=== PATIENT | male | born 1960 | race Hispanic/Latino ===

== ENCOUNTER 2017-11-23 14:00 | Inpatient (IN) | payer BC ==
--- NOTE | 2017-11-23 14:18 | ED PDOC ---
Arrival/HPI - General Chief Complaint: Weakness/Neurological Deficit Time Seen by Provider: 11/23/17 14:10 Historian: Patient, Other (medical records osh) - History of Present Illness Narrative History of Present Illness (Text): 56yoM, with hx of cad w stents, htn, hl, who had been sent for intermittent slurred speech, confusion, and left sided weakness for 3 days with also noted left side facial droop per . pt stated to outside facility he took his aspirin/plavix today. otherwise no n/v/duong/dizziness/sob/chest pain/abdomen pain/ numbness/tingling/pain w urination/drug use. 11/23/17 14:16 11/23/17 15:25 d/w Dr. Brownlee who stated no TPA, recommends admission, MRI/MRA of the head and neck. Time/Duration: Other (3 days) Symptom Onset: Gradual Symptom Course: Improving Quality: Other (no pain) Activities at Onset: Rest Context: Sitting Past Medical History - Provider Review Nursing Documentation Reviewed: Yes - Travel History Have you recently traveled outside [place] w/in the past 3 mons?: No - Infectious Disease Hx of Infectious Diseases: None - Cardiac Hx Cardiac Disorders: Yes Hx DC: Yes Hx Hypertension: Yes Hx Pacemaker: No Other/Comment: CATH- 4 STENTS - Pulmonary Hx Sleep Apnea: No - Neurological Hx Paralysis: No - Renal Hx Renal Disorder: No - Endocrine/Metabolic Hx Endocrine Disorders: No - Hematological/Oncological Hx Blood Transfusions: No Hx Blood Transfusion Reaction: No - Integumentary Hx Yan: No - Musculoskeletal/Rheumatological Hx Musculoskeletal Disorders: Yes (PINCHED NERVE NECK) Hx Back Pain: Yes - Gastrointestinal Hx Diverticulitis: No - Genitourinary/Gynecological Hx Genitourinary Disorders: No - Psychiatric Hx Psychophysiologic Disorder: No Hx Emotional Abuse: No Hx Physical Abuse: No Hx Substance Use: No - Surgical History Hx Arteriovenous Shunt: No Hx Cardiac Catheterization: Yes Hx Coronary Stent: Yes Hx Orthopedic Surgery: Yes - Anesthesia Hx Anesthesia: Yes Hx Anesthesia Reactions: No Hx Malignant Hyperthermia: No - Suicidal Assessment Feels Threatened In Home Enviroment: No Family/Social History - Physician Review Nursing Documentation Reviewed: Yes Family/Social History: No Known Family HX Smoking Status: Heavy Smoker > 10 Cigarettes Daily Hx Alcohol Use: No Hx Substance Use: No Hx Substance Use Treatment: No Allergies/Home Meds Allergies/Adverse Reactions: Allergies No Known Allergies Allergy (Verified 11/23/17 14:05) Home Medications: Home Meds Medication Instructions Recorded Confirmed Clopidogrel Hydrogen Sulfate 75 mg PO DAILY 08/29/12 01/21/16 [Plavix] Simvastatin 20 mg PO QPM 08/29/12 01/21/16 Aspirin [Aspir 81] 81 mg PO DAILY 10/12/13 01/21/16 Metoprolol Succinate [Toprol XL] 50 mg PO DAILY 10/12/13 01/21/16 Review of Systems - Review of Systems Constitutional: Normal Eyes: Normal ENT: Normal Respiratory: Normal Cardiovascular: Normal Gastrointestinal: Normal Genitourinary Male: Normal Musculoskeletal: Normal Skin: Normal Neurological: Focal Weakness, Speech Changes, Facial Droop Endocrine: Normal Hemo/Lymphatic: Normal Psychiatric: Normal Physical Exam Vital Signs Reviewed: Yes Vital Signs Temp Pulse Resp BP Pulse Ox 11/23/17 14:00 97.8 F 74 18 157/89 H 97 Temperature: Afebrile Blood Pressure: Hypertensive Pulse: Regular Respiratory Rate: Normal Appearance: Positive for: Well-Appearing, Non-Toxic, Comfortable Pain Distress: None Mental Status: Positive for: Alert and Oriented X 3 - Systems Exam Head: Present: Atraumatic, Normocephalic Pupils: Present: PERRL Extroacular Muscles: Present: EOMI Conjunctiva: Present: Normal Ears: Present: Normal Mouth: Present: Moist Mucous Membranes Pharnyx: Present: Normal Nose (External): Present: Atraumatic Nose (Internal): Present: Normal Inspection Neck: Present: Normal Range of Motion Respiratory/Chest: Present: Clear to Auscultation, Good Air Exchange Cardiovascular: Present: Regular Rate and Rhythm Abdomen: No: Tenderness, Distention, Normal Bowel Sounds, Peritoneal Signs, Rebound, Guarding, McBurney's Point Tender, Rovsing's Sign Present, Hernias, Feeding Tubes, Ostomy Tubes, Mass/Organomegaly, Scars, Other Upper Extremity: Present: Normal Inspection Lower Extremity: Present: Normal Inspection Neurological: Present: GCS=15, CN II-XII Intact, Motor Func Grossly Intact, Other (mild left facial droop) Skin: Present: Warm, Normal Color Psychiatric: Present: Alert, Oriented x 3, Normal Insight, Normal Concentration Medical Decision Making ED Course and Treatment: 56yoM, with hx of cad w stents, htn, hl, who had been sent for intermittent slurred speech, confusion, and left sided weakness for 3 days with also noted left side facial droop per . pt stated to outside facility he took his aspirin/plavix today. otherwise no n/v/duong/dizziness/sob/chest pain/abdomen pain/ numbness/tingling/pain w urination/drug use. ECG: SR CXR no active disease cT head chronic microvascular disease. small remote infarcts. no acute ICH or mass effect. 11/23/17 14:22 11/23/17 15:39 d 11/23/17 15:39 d/w Dr. Brownlee who stated no tpa, 3 days of symptoms. MRI/MRA head/neck. d/w Dr. Pacheco who accepted pt. stated agreed MRI/MRA head/neck. will admit to tele. Reassessment Condition: Re-examined, Unchanged - Lab Interpretations Lab Results: 11/23/17 14:40 11/23/17 14:40 Lab Results 11/23/17 14:40: Sodium 140, Potassium 4.2, Chloride 104, Carbon Dioxide 25, Anion Gap 15, BUN 18, Creatinine 1.0, Est GFR ( Amer) > 60, Est GFR (Non- Af Amer) > 60, Random Glucose 117 H, Calcium 9.5, Total Bilirubin 0.8, AST 25, ALT 33, Alkaline Phosphatase 77, Troponin I < 0.01, Total Protein 7.5, Albumin 4.4, Globulin 3.1, Albumin/Globulin Ratio 1.4, Triglycerides 120, Cholesterol 154, LDL Cholesterol Direct 104, HDL Cholesterol 35 11/23/17 14:40: PT 12.0, INR 1.05, APTT 30.4 11/23/17 14:40: WBC 7.3, RBC 4.93, Hgb 15.6, Hct 44.8, MCV 90.9, MCH 31.6, MCHC 34.8, RDW 13.2, Plt Count 184, MPV 9.4, Gran % 66.3, Lymph % (Auto) 26.5, [place] % (Auto) 5.5, Eos % (Auto) 1.2 L, Baso % (Auto) 0.5, Gran # 4.86, Lymph # (Auto ) 1.9, [place] # (Auto) 0.4, Eos # (Auto) 0.1, Baso # (Auto) 0.04 I have reviewed the lab results: Yes - RAD Interpretation Radiology Orders: 11/23/17 14:12 CHEST PORTABLE [RAD] Stat 11/23/17 15:34 BRAIN WITHOUT CONTRAST [MRI] Stat MRA HEAD WITH CONTRAST [MRI] Stat MRA HEAD WITHOUT CONTRAST [MRI] Stat MRA NECK W/WO CONTRAST [MRI] Stat Modeling Teacher: Radiologist (see mdm) - EKG Interpretation Interpreted by ED Physician: Yes (outside hospital ECG- SR, mild depressions, t wave inversions) Type: 12 lead EKG - Medication Orders Current Medication Orders: Sodium Chloride (Sodium Chloride 0.9%) 1,000 mls @ 100 mls/hr IV .Q10H PANFILO Last Admin: 11/23/17 14:56 Dose: 100 mls/hr eMAR Start Stop Document 11/23/17 14:56 [facility] (Rec: 11/23/17 14:56 [facility] [id number]) Intravenous Solution Start Date 11/23/17 Start Time 14:56 NIHSS Stroke Scale 3 - Date/Time Evaluation Performed Date Performed: 11/23/17 When Was NIHSS Performed: Baseline - How Severe is the Stroke Level of Consciousness: 0=Alert LOC to Questions: 0=Both comments correct LOC to commands: 0=Obeys both correctly Best Gaze: 0=Normal Visual: 0=No visual loss Facial: 1=Minor asymmetry Motor Arm - Left: 0=No drift Motor Arm - Right: 0=No drift Motor Leg - Left: 0=No drift Motor Leg - Right: 0=No drift Limb Ataxia: 0=Absent Sensory: 0=Normal Best Language: 0=No aphasia Dysarthia: 1=Mild to moderate slurring Extinction & Inattention (Neglect): 0=Normal, no object Score: 2 Disposition/Present on Arrival - Present on Arrival Any Indicators Present on Arrival: No History of DVT/PE: No History of Uncontrolled Diabetes: No Urinary Catheter: No History of Decub. Ulcer: No History Surgical Site Infection Following: None - Disposition Have Diagnosis and Disposition been Completed?: Yes Diagnosis: CVA (cerebral vascular accident) Disposition Time: 15:42 Patient Plan: Telemetry Condition: STABLE Forms: [employer] ([place])
[2017-11-23] MEDS: Sodium Chloride 0.9% 1,000 ML IV SCH (14:56)
[2017-11-23 15:04] LABS: BASO # 0.04 K/mm3 (0.0-2.0); BASO % 0.5 % (0.0-3.0); EOS # 0.1 (0.0-0.7); EOS % 1.2 % (1.5-5.0); GRAN # 4.86 (1.4-6.5); GRAN % 66.3 % (50.0-68.0); HEMOGLOBIN 15.6 g/dL (14.0-18.0); LYMPH # 1.9 (1.2-3.4); LYMPH % 26.5 % (22.0-35.0); MEAN CELL VOLUME 90.9 fl (80.0-105.0); MEAN CORPUSCULAR HEMOGLOBIN 31.6 pg (25.0-35.0); MEAN CORPUSCULAR HGB CONC 34.8 g/dl (31.0-37.0); MEAN PLATELET VOLUME 9.4 fl (7.0-11.0); MONO # 0.4 (0.1-0.6); MONO % 5.5 % (1.0-6.0); RBC 4.93 10^6/uL (3.5-6.1); RED CELL DISTRIBUTION WIDTH 13.2 % (11.5-14.5); WHITE BLOOD COUNT 7.3 10^3/ul (4.5-11.0)
--- NOTE | 2017-11-23 15:08 | RAD ---
HISTORY: Code Stroke COMPARISON: 11/23/2017 FINDINGS: LUNGS: No active pulmonary disease. PLEURA: No significant pleural effusion identified, no pneumothorax apparent. CARDIOVASCULAR: Normal. OSSEOUS STRUCTURES: No significant abnormalities. VISUALIZED UPPER ABDOMEN: Normal. OTHER FINDINGS: None. IMPRESSION: No active disease.
[2017-11-23 15:14] LABS: INR 1.05 (0.93-1.08); PARTIAL THROMBOPLASTIN TIME 30.4 Seconds (25.1-36.5)
[2017-11-23 15:15] LABS: ALB/GLOB RATIO 1.4 (1.1-1.8); ALBUMIN 4.4 g/dL (3.0-4.8); ALT/SGPT 33 U/L (7-56); AST/SGOT 25 U/L (17-59); BLOOD UREA NITROGEN 18 mg/dL (7-21); CALCIUM 9.5 mg/dL (8.4-10.5); GFR AFRICAN-AMERICAN > 60; GFR NON-AFRICAN AMERICAN > 60; HDL CHOLESTEROL 35 mg/dL (29-60)
[2017-11-23 15:25] LABS: LDL CHOLESTEROL 104 mg/dL (0-129)
[2017-11-23 15:29] LABS: TROPONIN I < 0.01 ng/mL
[2017-11-23 22:50] VITALS: BMI 33.4
--- NOTE | 2017-11-24 00:45 | CP.PCM.PN ---
Subjective - Date & Time of Evaluation Date of Evaluation: 11/24/17 Time of Evaluation: 00:44 - Subjective Subjective: S:Patient was seen at bedside. He is requesting nicotine patch. Has no other complaints now. Pertinent medical record was reviewed. O: VSS. Not in acute distress. LUNGS: Normal breathing pattern. A:Tobacco dependence. P:Nicotine patch as ordered. Objective - Vital Signs/Intake and Output Vital Signs (last 24 hours): Temp Pulse Resp BP Pulse Ox 97.7 F 83 20 146/93 H 94 L 11/24/17 00:01 11/24/17 00:01 11/24/17 00:01 11/24/17 00:01 11/24/17 00:01 - Medications Medications: Current Medications Sodium Chloride (Sodium Chloride 0.9%) 1,000 mls @ 100 mls/hr IV .Q10H PANFILO Last Admin: 11/23/17 14:56 Dose: 100 mls/hr Lorazepam (Ativan) 1 mg IVP Q6H PRN; Protocol PRN Reason: Anxiety Last Admin: 11/23/17 20:45 Dose: 1 mg - Labs Labs: PT 12.0 SECONDS (9.4-12.5) 11/23/17 14:40 INR 1.05 (0.93-1.08) 11/23/17 14:40 APTT 30.4 Seconds (25.1-36.5) 11/23/17 14:40
[2017-11-24] MEDS: Sodium Chloride 0.9% 1,000 ML IV SCH ×3 (05:00→19:53)
[2017-11-24 06:18] LABS: BASO # 0.02 K/mm3 (0.0-2.0); BASO % 0.3 % (0.0-3.0); EOS # 0.1 (0.0-0.7); EOS % 1.7 % (1.5-5.0); GRAN # 4.3 (1.4-6.5); GRAN % 61.9 % (50.0-68.0); HEMOGLOBIN 14.8 g/dL (14.0-18.0); LYMPH % 28.9 % (22.0-35.0); MEAN CELL VOLUME 90.8 fl (80.0-105.0); MEAN CORPUSCULAR HGB CONC 34.2 g/dl (31.0-37.0); MEAN PLATELET VOLUME 9.3 fl (7.0-11.0); MONO # 0.5 (0.1-0.6); MONO % 7.2 % (1.0-6.0); RBC 4.77 10^6/uL (3.5-6.1); RED CELL DISTRIBUTION WIDTH 13.2 % (11.5-14.5)
[2017-11-24 07:15] LABS: ALB/GLOB RATIO 1.4 (1.1-1.8); ALT/SGPT 28 U/L (7-56); AST/SGOT 31 U/L (17-59); BLOOD UREA NITROGEN 18 mg/dL (7-21); CALCIUM 9.3 mg/dL (8.4-10.5); GFR AFRICAN-AMERICAN > 60; GFR NON-AFRICAN AMERICAN > 60
--- NOTE | 2017-11-24 09:14 | MRI ---
PROCEDURE: MRI BRAIN WITHOUT CONTRAST HISTORY: 56yoM, facial droop/slurred speech COMPARISON: Noncontrast head CT from 11/23/2017 TECHNIQUE: Multiplanar, multisequence MR images of the brain were obtained without intravenous contrast enhancement. FINDINGS: HEMORRHAGE: None DWI: There is a small lacunar infarction in the posterior limb of the right internal capsule. . BRAIN PARENCHYMA: There are severe chronic microangiopathic changes. There is an old infarction in the left dumont radiata There is no mass, mass effect or abnormal extra-axial fluid collection. There is no territorial infarction. The midline sagittal structures are normal. VENTRICLES: There is mild age-related global parenchymal volume loss and proportionate enlargement of the ventricles and cortical sulci. There is a cavum septum pellucidum. CRANIUM: There is normal bone marrow signal pattern. ORBITS: Grossly unremarkable. PARANASAL SINUSES/MASTOIDS: There is a retention cyst/polyp in the right maxillary sinus and mild mucosal thickening in the left frontal sinus and ethmoid air cells. There are bilateral mastoid effusions. VASCULAR SYSTEM: There are normal signal voids in the larger intracranial arteries. OTHER FINDINGS: None. IMPRESSION: Small acute lacunar infarction in the posterior limb of the right internal capsule Severe chronic microangiopathic changes and mild age-related global parenchymal volume loss. A preliminary report was provided by [facility].
--- NOTE | 2017-11-24 09:19 | CP.PCM.CON ---
History of Present Illness - History of Present Illness History of Present Illness: Neurology Consult Note: 56M, with PMHx of epilepsy as a child, CAD w stents 2013, HTN and HLD presents to the ED with confusion, L sided weakness, slurred speech. Patient states that he wasn't "feeling right" starting 3 days ago than yesterday he started having L sided weakness, facial droop, and slurred speech and he came to the ED. Pt denies this ever occurring before. Today the patient states he still has L sided facial droop and slurred speech but denies any weakness of the extremities. He deneis any headache, dizziness, f/c, sob, cp, abd pain, n/v/d. PMH: epilepsy as a child, CAD w stents 2013, HTN and HLD PSH: appendectomy Med: refer to NOV ALL: shellfish FH: Brother with epilepsy, parents with heart dx Review of Systems - Review of Systems All systems: reviewed and no additional remarkable complaints except Past Patient History - Infectious Disease Hx of Infectious Diseases: None - Past Social History Smoking Status: Heavy Smoker > 10 Cigarettes Daily - CARDIAC Hx Cardiac Disorders: Yes Hx Hypercholesterolemia: Yes Hx Hypertension: Yes - PULMONARY Hx Respiratory Disorders: No - NEUROLOGICAL Hx Neurological Disorder: No Hx Seizures: Yes ("as a child") - HEENT Hx HEENT Problems: ([place]) - RENAL Hx Chronic Kidney Disease: No - ENDOCRINE/METABOLIC Hx Endocrine Disorders: No - HEMATOLOGICAL/ONCOLOGICAL Hx Blood Disorders: No - INTEGUMENTARY Hx Dermatological Problems: No - MUSCULOSKELETAL/RHEUMATOLOGICAL Hx Musculoskeletal Disorders: Yes Hx Back Pain: Yes Hx Falls: No Other/Comment: tendonitis, pinched nerve in neck - GASTROINTESTINAL Hx Gastrointestinal Disorders: No - GENITOURINARY/GYNECOLOGICAL Hx Genitourinary Disorders: No - PSYCHIATRIC Hx Psychophysiologic Disorder: No Hx Substance Use: No - SURGICAL HISTORY Hx Surgeries: Yes Hx Cardiac Catheterization: Yes Hx Coronary Stent: Yes Hx Orthopedic Surgery: Yes - ANESTHESIA Hx Anesthesia: Yes Hx Anesthesia Reactions: No Hx Malignant Hyperthermia: No Meds Allergies/Adverse Reactions: Allergies Allergy/AdvReac Type Severity Reaction Status Date / Time shellfish derived AdvReac NAUSEA Verified 11/23/17 20:10 - Medications Medications: Current Medications Sodium Chloride (Sodium Chloride 0.9%) 1,000 mls @ 100 mls/hr IV .Q10H PANFILO Last Admin: 11/24/17 05:00 Dose: 100 mls/hr Lorazepam (Ativan) 1 mg IVP Q6H PRN; Protocol PRN Reason: Anxiety Last Admin: 11/24/17 06:29 Dose: 1 mg Nicotine (Nicoderm Cq) 1 patch TD DAILY [facility] Pantoprazole Sodium (Protonix Inj) 40 mg IVP DAILY [facility] Physical Exam - Constitutional Appears: No Acute Distress - Head Exam Head Exam: ATRAUMATIC, NORMOCEPHALIC - Eye Exam Eye Exam: EOMI, PERRL Pupil Exam: NORMAL ACCOMODATION - ENT Exam ENT Exam: Mucous Membranes Moist - Respiratory Exam Respiratory Exam: Clear to Auscultation Bilateral. absent: Rales, Wheezes - Cardiovascular Exam Cardiovascular Exam: REGULAR RHYTHM, +S1, +S2 - GI/Abdominal Exam GI & Abdominal Exam: Normal Bowel Sounds, Soft. absent: Distended, Tenderness - Neurological Exam Neurological exam: Alert, Oriented x3 - Expanded Neurological Exam Expanded Patient oriented to: person, place, time Speech: Slurred Speech Cranial nerves: EOM's Intact: Normal, Tongue Deviation: Normal Cerebellar Function: Finger to Nose: Abnormal Left Neuro motor strength exam: Left Upper Extremity: 5, Right Upper Extremity: 5, Left Lower Extremity: 5, Right Lower Extremity: 5 - Psychiatric Exam Psychiatric exam: Normal Mood - Skin Skin Exam: Dry, Intact Results - Vital Signs Recent Vital Signs: Last Vital Signs Temp 97.8 F 11/24/17 05:58 Pulse 80 11/24/17 05:58 Resp 20 11/24/17 05:58 BP 135/85 11/24/17 05:58 Pulse Ox 95 11/24/17 05:58 - Labs Result Diagrams: 11/24/17 05:30 11/24/17 05:30 Labs: Laboratory Results - last 24 hr 11/23/17 11/23/17 11/24/17 17:44 21:43 05:30 WBC 7.0 RBC 4.77 Hgb 14.8 Hct 43.3 MCV 90.8 MCH 31.0 MCHC 34.2 RDW 13.2 Plt Count 171 MPV 9.3 Gran % 61.9 Lymph % (Auto) 28.9 [place] % (Auto) 7.2 H Eos % (Auto) 1.7 Baso % (Auto) 0.3 Gran # 4.30 Lymph # (Auto) 2.0 [place] # (Auto) 0.5 Eos # (Auto) 0.1 Baso # (Auto) 0.02 Sodium Potassium Chloride Carbon Dioxide Anion Gap BUN Creatinine Est GFR ( Amer) Est GFR (Non-Af Amer) POC Glucose (mg/dL) 75 86 Random Glucose Calcium Total Bilirubin AST ALT Alkaline Phosphatase Total Protein Albumin Globulin Albumin/Globulin Ratio 11/24/17 05:30 WBC RBC Hgb Hct MCV MCH MCHC RDW Plt Count MPV Gran % Lymph % (Auto) [place] % (Auto) Eos % (Auto) Baso % (Auto) Gran # Lymph # (Auto) Stone # (Auto) Eos # (Auto) Baso # (Auto) Sodium 141 Potassium 3.8 Chloride 106 Carbon Dioxide 25 Anion Gap 13 BUN 18 Creatinine 1.0 Est GFR ( Amer) > 60 Est GFR (Non-Af Amer) > 60 POC Glucose (mg/dL) Random Glucose 90 Calcium 9.3 Total Bilirubin 1.0 AST 31 ALT 28 Alkaline Phosphatase 75 Total Protein 6.8 Albumin 4.0 Globulin 2.8 Albumin/Globulin Ratio 1.4 Assessment & Plan - Assessment and Plan (Free Text) Assessment: 56M, with PMHx of epilepsy as a child, CAD w stents 2013, HTN and HLD presents to the ED with confusion, L sided weakness, slurred speech. Found to have small acute lacunar infarct in the post limb of R internal capsule. - Started Cilostazol (in addition to Asa ans plavix). I explained to the patient accompanied by and sister in detail the benefit (vasodilatory effect to prevent further strokes) and risk ( bleeding) of cilastazol. All questions answered. The patient along with family chose to start Cilostazol to dec chance or recurrent stroke. - MRI brain shows small acute lacunar infarct in the post limb of R internal capsule. - F/u MRA head - severe short segment stenosis in the L post [employer] - CTA of head and neck ordered to evaluate L [employer] stenosis - F/u echo with bubble study - F/u Carotid artery US - EEG ordered - Cont home asprin, plavix and lipitor - Maintain BP control with systolic BP <220/110 for permissive hypertension for 24-36 hours post stroke - PT and OT; Speech eval Case and plan was reviewed and discussed with Dr Brownlee
--- NOTE | 2017-11-24 09:26 | MRI ---
PROCEDURE: Magnetic Resonance Angiography Brain HISTORY: 56yoM, facial droop/slurred speech COMPARISON: None available. TECHNIQUE: 3D time of flight MR angiography of the intracranial arteries was performed. Rotating maximum intensity projection images were generated. FINDINGS: INTERNAL CAROTID ARTERIES: Normal flow related signal. The skull base, petrous, cavernous and supraclinoid segments are bilaterally widely patient. ANTERIOR CEREBRAL ARTERIES: Normal flow related signal. A1 and A2 segments are widely patent. Smaller distal branches unremarkable, as visualized. MIDDLE CEREBRAL ARTERIES: Normal flow related signal. M1 and M2 segments are widely patent. Perisylvian branches grossly symmetric. POSTERIOR CIRCULATION: Basilar Artery: Normal flow related signal. Distal Vertebral Arteries: Normal flow related signal. The left vertebral artery is hypoplastic, an anatomic variant. Posterior Cerebral Arteries: Normal flow related signal in the right posterior cerebral artery. There is severe short segment stenosis in the left proximal posterior cerebral artery. Posterior Inferior Cerebellar Arteries: Normal flow related signal. ANEURYSM/ VASCULAR MALFORMATIONS: None. OTHER FINDINGS: None. IMPRESSION: No evidence of occlusion or definite significant stenosis in the anterior circulation. Severe short segment stenosis in the left proximal posterior cerebral artery. Normal appearance of the right posterior cerebral, vertebral and basilar arteries. The left vertebral artery is
--- NOTE | 2017-11-24 09:40 | HP ---
HISTORY OF PRESENT ILLNESS: The patient is a 56 year old man with a past medical history of CAD s/p PCI with stent placement, hyperlipidemia and an extensive smoking history who presented to [facility] ED for evaluation of a 3 day history of dysarthria, left facial droop and gait unsteadiness. The patient was reportedly in his usual state of health until approximately 3 days ago when the symptoms began. He initially attributed them to a sinus infection as he reported numbness and tingling to his left maxilla. Over the course of the following 72 hours he developed rather significant dysarthria and upon the insistence of his , he presented to the [facility] ED in [place]. The patient underwent a CT of the head which reportedly demonstrated a subacute infarct and he was advised that he would require a full neurologic workup. He had then requested to be transferred to [facility] for further evaluation. Upon arrival to the ED he was noted to be afebrile and hemodynamically stable. Given the duration of his symptoms he was not a candidate for tPA. The on-call neurologist (Dr. Brownlee) made recommendations for admission and MRA of the brain. He was subsequently admitted to the telemetry talley for continued neurological workup. PAST MEDICAL HISTORY: As per HPI, also COPD. PAST SURGICAL HISTORY: As per HPI, also spinal surgery and inguinal hernia repair. ALLERGIES: NKDA. MEDICATIONS: Lipitor 20 mg p.o. daily, Aspirin 81 mg p.o. daily, Plavix 75 mg p.o. daily and Toprol XL 50 mg p.o. daily. FAMILY HISTORY: Noncontributory. SOCIAL HISTORY: The patient reports an active 40 pack year smoking history and social alcohol use. He denies illicit drug abuse. REVIEW OF SYSTEMS: A 14-point review of systems is negative except as per HPI. PHYSICAL EXAMINATION VITAL SIGNS: Temperature 97.8, pulse 80, blood pressure 135/85, respiratory rate 20, and oxygen saturations 95% on room air. GENERAL: No apparent distress. HEENT: PERRL. EOMI. No scleral icterus. No conjunctival pallor. Left-sided facial droop is noted. NECK: Supple with full range of motion. LUNGS: Distant breath sounds with faint wheeze. CARDIOVASCULAR: Regular rate and rhythm. Normal S1 and S2. ABDOMEN: Normoactive bowel sounds. Soft, nontender, and nondistended. EXTREMITIES: No edema. NEUROLOGIC: Awake, alert and oriented x3. Decreased sensation and motor function to left aspect of face with left facial droop noted. Motor is 5/5 on the right, 4+/5 on the left. LABORATORY DATA: CBC reviewed and unremarkable. CMP reviewed and unremarkable. Cholesterol 154 , triglycerides 120, LDL 104, HDL 35. IMAGING STUDIES: 1. Chest x-ray demonstrated no active disease. 2. MRI of the brain is pending. 3. MRA of the head and neck is pending. ASSESSMENT: The patient is a 56 year old man with a past medical history of CAD s/p PCI with stent placement, hyperlipidemia and COPD who presented for evaluation of a 3 day history of dysarthria and left-sided facial droop and was noted on outpatient imaging an acute vs subacute infarct and who was admitted to the telemetry talley for management of cerebrovascular accident. PLAN: 1. CVA. Given the chronicity of the symptoms, the patient is not a candidate for tPA. Evaluation by Dr. Brownlee is pending. The patient underwent an MRI and MRA of the brain which is pending. Continue with frequent neuro checks. Speech and swallow evaluation is pending and the patient will remain n.p.o., pending their evaluation. PT/OT evaluation is pending. 2. CAD s/p PCI with stent placement. The patient is on Aspirin 81 mg p.o. daily, Plavix 75 mg p.o. daily, Lipitor 20 mg p.o. daily, and Toprol XL 50 mg p.o. daily at home. However he remains n.p.o., pending speech and swallow evaluation. 3. Hyperlipidemia. As above, we will hold statin pending speech and swallow evaluation. 4. COPD. Continue supplemental oxygen and bronchodilators as needed. 5. Tobacco dependence. Continue nicotine 21 mg transdermal patch. 6. Anxiety. Continue Ativan 1 mg IV q. 6 hours as needed. 7. Prophylaxis. We will start Protonix 40 mg IV daily for GI prophylaxis and Venodyne for DVT prophylaxis. CODE STATUS: Full code. Piter Ordonez MD [facility] # [id number] GARRICK
--- NOTE | 2017-11-24 11:05 | CARD ---
APPROVED REPORT EKG Measurement Heart [id number] <Conclusion> Normal sinus rhythm Possible Left atrial enlargement Left ventricular hypertrophy with repolarization abnormality
[2017-11-24 12:40] LABS: FOLATE 12.9 ng/mL
[2017-11-24] MEDS: Metoprolol Succinate 50 mg XL Tab PO SCH (13:35)
--- NOTE | 2017-11-24 17:19 | CARD ---
APPROVED REPORT EXAM: Two-dimensional and M-mode echocardiogram with Doppler and color Doppler. INDICATION CVA/TIA BUBBLE STUDY TO R/O PFO 2D DIMENSIONS Left Atrium (2D)5.1 (1.6-4.0cm)IVSd1.1 (0.7-1.1cm) LVDd5.4 (3.9-5.9cm)PWd1.3 (0.7-1.1cm) LVDs4.5 (2.5-4.0cm)FS (%) 17.3 % LVEF (%)35.8 (>50%) M-Mode DIMENSIONS Aortic Root2.90 (2.2-3.7cm)Aortic Cusp Exc.1.30 (1.5-2.0cm) Aortic Valve AoV Peak Xumzwuxr847.0cm/sAoV VTI39.4cmAO Peak GR.13mmHg LVOT Peak Umtxtuys59.7cm/sLVOT VTI18.30cmAO Mean GR.8mmHg Mitral Valve MV E Kvbgkynp84.4cm/sMV A Agvawpnw81.6cm/sE/A ratio0.7 TDI Lateral E' Peak V4.68cm/sMedial E' Peak V5.36cm/sE/Lateral E'14.0 E/Medial E'12.2 Pulmonary Valve PV Peak Vuohengf91.6cm/sPV Peak Grad.3mmHg Tricuspid Valve TR Peak Ibrsreef106ru/sRAP [id number] Peak Gr.9mmHg [id number] LEFT VENTRICLE The left ventricle is normal size. There is mild concentric left ventricular hypertrophy. The systolic function is moderately impaired.EF=-35 -40% There is global hypokinesis of the left ventricle. Transmitral Doppler flow pattern is Grade III-reversible restrictive diastolic dysfunction. No left ventricle thrombus noted on this study. There is no ventricular septal defect visualized. There is no left ventricular aneurysm. There is no mass noted in the left ventricle. RIGHT VENTRICLE The right ventricle is normal size. There is normal right ventricular wall thickness. The right ventricular systolic function is normal. ATRIA The left atrium is mildly dilated. The right atrium size is normal. The interatrial septum is intact with no evidence for an atrial septal defect. AORTIC VALVE The aortic valve is thickened but opens well. The aortic valve is bicuspid. The aortic valve is moderately sclerotic. No aortic regurgitation is present. Possibly Mild As Vs aotic sclerosis. There is no aortic valvular vegetation. MITRAL VALVE The mitral valve is thickened but opens well. Mitral regurgitation is trace. There is no mitral valve stenosis. There is no evidence of mitral valve prolapse. TRICUSPID VALVE The tricuspid valve leaflets are thickened , but open well. There is trace tricuspid regurgitation.RVSP-19 mmof hg. There is no tricuspid valve stenosis. There is no tricuspid valve prolapse or vegetation. PULMONIC VALVE The pulmonary valve is normal in structure. There is no pulmonic valvular regurgitation. There is no pulmonic valvular stenosis. GREAT VESSELS The aortic root is normal in size. The ascending aorta is normal in size. The pulmonary artery is normal. The IVC is normal in size and collapses >50% with inspiration. PERICARDIAL EFFUSION There is no pleural effusion. There is no pericardial effusion. <Conclusion> The left ventricle is normal size. There is mild concentric left ventricular hypertrophy. The systolic function is moderately impaired.EF=-35 -40% There is global hypokinesis of the left ventricle. The aortic valve is thickened but opens well. The aortic valve is bicuspid. Possibly Mild As Vs aotic sclerosis. Mitral regurgitation is trace. There is trace tricuspid regurgitation.RVSP-19 mmof hg No Vegetation or thrombus noted.
[2017-11-24] MEDS: Cilostazol 100 mg Tab UD PO SCH (17:51)
--- NOTE | 2017-11-24 19:21 | US ---
PROCEDURE: Bilateral carotid artery duplex ultrasound HISTORY: Carotid stenosis lacunar infarct PHYSICIAN(S): Peter Haq MD. TECHNIQUE: Duplex sonography and color-flow Doppler were used to evaluate the carotid bifurcations and limited segments of the vertebral arteries bilaterally. FINDINGS: There is mild smooth heterogeneous plaque noted at the carotid bifurcations bilaterally. The peak systolic velocity in the proximal right internal carotid artery is 74 cm/sec. This corresponds to a 20 to 39% proximal right ICA stenosis. Normal systolic velocities are noted in the proximal right external carotid artery. There is antegrade flow in the dominant right vertebral artery. The peak systolic velocity in the proximal left internal carotid artery is 60 cm/sec. This corresponds to a 20 to 39% proximal left ICA stenosis. Normal systolic velocities are noted in the proximal left external carotid artery. There is blunted antegrade flow in the left vertebral artery. IMPRESSION: 1. Bilateral 20-39% proximal ICA stenoses. 2. Antegrade flow in the dominant right vertebral artery. Blunted flow in the small left vertebral artery
[2017-11-24] MEDS ORDERED: Magnesium Hydroxide Susp 30 ml UD PO ONE (19:44)
--- NOTE | 2017-11-24 21:56 | CT ---
EXAM: CT Angiography Head With Intravenous Contrast CLINICAL HISTORY: The patient age is 56 years old and is male; Signs and symptoms; Other: L posterior mechanic insulator stenosis Facility exam id and description: [facility] head neck bundle TECHNIQUE: Axial computed tomographic angiography images of the head with intravenous contrast using CT angiography protocol. All CT scans at this facility use one or more dose reduction techniques, viz.: automated exposure control; ma/kV adjustment per patient size (including targeted exams where dose is matched to indication; i.e. head); or iterative reconstruction technique. MIP reconstructed images were created and reviewed. Coronal and sagittal reformatted images were created and reviewed. CONTRAST: 139 mL of OMNI 350 administered intravenously. COMPARISON: CT Head WO 2017-11-23 12:06 FINDINGS: Right internal carotid artery: No acute findings. Intracranial segment is patent with no significant stenosis. No aneurysm. Right anterior cerebral artery: No occlusion or significant stenosis. No aneurysm. Right middle cerebral artery: No occlusion or significant stenosis. No aneurysm. Right posterior cerebral artery: No occlusion or significant stenosis. No aneurysm. Right vertebral artery: A dominant right vertebral artery is identified. There is a diffuse decrease in caliber of the left vertebral artery, without occlusion. Left internal carotid artery: No acute findings. Intracranial segment is patent with no significant stenosis. No aneurysm. Left anterior cerebral artery: No occlusion or significant stenosis. No aneurysm. Left middle cerebral artery: No occlusion or significant stenosis. No aneurysm. Left posterior cerebral artery: There is mild stenosis of the left posterior cerebral artery. No aneurysm. Left vertebral artery: See above. Basilar artery: No significant stenosis. No occlusion. No aneurysm. Sinuses: Mucous retention cysts or polyps are minimal mucosal thickening is identified within the maxillary sinuses, right side greater than left. There is opacification of a left anterior ethmoid air cell, with mucosal thickening of the left frontal sinus. IMPRESSION: 1. A dominant right vertebral artery is identified. There is a diffuse decrease in caliber of the left vertebral artery, without occlusion. 2. There is mild stenosis of the left posterior cerebral artery. 3. Paranasal sinus disease is noted above. EXAM: CT Angiography Neck With Intravenous Contrast EXAM DATE/TIME: 11/24/2017 1:22 PM CLINICAL HISTORY: The patient age is 56 years old and is male; Signs and symptoms; Other: L posterior mechanic insulator stenosis Facility exam id and description: [facility] head neck bundle TECHNIQUE: Axial computed tomographic angiography images of the neck with intravenous contrast using CT angiography protocol. All CT scans at this facility use one or more dose reduction techniques, viz.: automated exposure control; ma/kV adjustment per patient size (including targeted exams where dose is matched to indication; i.e. head); or iterative reconstruction technique. MIP reconstructed images were created and reviewed. Coronal and sagittal reformatted images were created and reviewed. CONTRAST: 139 mL of OMNI 350 administered intravenously. COMPARISON: CT Head WO 2017-11-23 12:06 FINDINGS: Limitations: Venous enhancement limits evaluation of the right subclavian artery. VASCULATURE: Right common carotid artery: No significant stenosis. No dissection or occlusion. Right internal carotid artery: There is minimal atherosclerosis of the proximal right internal carotid artery, without hemodynamically significant stenosis or occlusion. Right external carotid artery: No occlusion. Right vertebral artery: A dominant right vertebral artery is identified, without significant stenosis or occlusion. Left common carotid artery: No significant stenosis. No dissection or occlusion. Left internal carotid artery: Atherosclerosis and mural thrombus are visualized within the proximal left internal carotid artery, with approximately 40% stenosis. Left external carotid artery: No occlusion. Left vertebral artery: The left vertebral artery is diffusely small in caliber, without obstruction. The left vertebral artery originates from the aortic arch, which is a developmental variation. Other vasculature: There is borderline aneurysmal dilatation of the ascending aorta measuring 3.8 cm in diameter. NECK: Bones/joints: Spondylosis is visualized at multiple cervical levels. There is straightening of the lordotic curvature of the cervical spine. Soft tissues: No mass. Lung apices: Mild patchy groundglass density is identified within the lungs. CAROTID STENOSIS REFERENCE USING NASCET CRITERIA: % ICA stenosis = (1 - narrowest ICA diameter/diameter of distal cervical ICA) x 100. Mild - <50% stenosis. Moderate - 50-69% stenosis. Severe - 70-94% stenosis. Near occlusion - 95-99% stenosis. Occluded - 100% stenosis. IMPRESSION: 1. A dominant right vertebral artery is identified. The left vertebral artery is diffusely small in caliber, without obstruction. The left vertebral artery originates from the aortic arch, which is a developmental variation. 2. Atherosclerosis and mural thrombus are visualized within the proximal left internal carotid artery, with approximately 40% stenosis. 3. There is borderline aneurysmal dilatation of the ascending aorta measuring 3.8 cm in diameter. 4. Additional CT findings described above.
[2017-11-25] MEDS: Sodium Chloride 0.9% 1,000 ML IV SCH ×2 (05:17→17:56)
[2017-11-25] MEDS: Pantoprazole 40 mg Susp UD PO SCH (05:18)
[2017-11-25 07:32] LABS: BASO # 0.03 K/mm3 (0.0-2.0); BASO % 0.4 % (0.0-3.0); EOS # 0.1 (0.0-0.7); EOS % 1.8 % (1.5-5.0); GRAN # 4.12 (1.4-6.5); GRAN % 60.5 % (50.0-68.0); HEMOGLOBIN 13.7 g/dL (14.0-18.0); LYMPH # 2.1 (1.2-3.4); MEAN CELL VOLUME 90.2 fl (80.0-105.0); MEAN CORPUSCULAR HEMOGLOBIN 30.6 pg (25.0-35.0); MEAN PLATELET VOLUME 9.6 fl (7.0-11.0); MONO # 0.4 (0.1-0.6); MONO % 6.3 % (1.0-6.0); RBC 4.47 10^6/uL (3.5-6.1); WHITE BLOOD COUNT 6.8 10^3/ul (4.5-11.0)
[2017-11-25 07:43] LABS: ALB/GLOB RATIO 1.4 (1.1-1.8); ALBUMIN 3.6 g/dL (3.0-4.8); ALT/SGPT 32 U/L (7-56); AST/SGOT 19 U/L (17-59); BLOOD UREA NITROGEN 13 mg/dL (7-21); CALCIUM 8.5 mg/dL (8.4-10.5); GFR AFRICAN-AMERICAN > 60; GFR NON-AFRICAN AMERICAN > 60
[2017-11-25] MEDS: Metoprolol Succinate 50 mg XL Tab PO SCH (11:09)
[2017-11-25] MEDS: Cilostazol 100 mg Tab UD PO SCH ×2 (11:10→17:55)
--- NOTE | 2017-11-25 12:08 | CP.PCM.PN ---
Subjective - Date & Time of Evaluation Date of Evaluation: 11/25/17 Time of Evaluation: 12:01 - Subjective Subjective: Mr. Garces was seen and examined at the bedside.He is alert, oriented with left facial droop.He has mild dysarthria.He denies any headache,dizziness, lightheadedness, nausea, vomiting. He is able to follow simple commands. His left side is weaker than the right.CTA of the head and neck showed adominant right vertebral artery. The left vertebral artery is diffusely small in caliber without obstruction. The left vertebral originates from the arch which ia developmental variation. Atherosclerosis and mural thrombosis are visualized within the proximal left ICA with approximately 40% stenosis. There is a borderline aneurymmal dilation of the ascending aorta measuring 3.8 cm in diameter. Patient is on telesitter for patient safety. Objective - Vital Signs/Intake and Output Vital Signs (last 24 hours): Temp Pulse Resp BP Pulse Ox 97.7 F 84 18 137/74 97 11/25/17 11:44 11/25/17 11:44 11/25/17 11:44 11/25/17 11:09 11/25/17 06:00 Intake and Output: 11/25/17 11/25/17 06:59 18:59 Intake Total 1860 Output Total 1600 Balance 260 - Medications Medications: Current Medications Aspirin (Aspirin Chewable) 81 mg PO DAILY [facility] Last Admin: 11/25/17 11:10 Dose: 81 mg Atorvastatin Calcium (Lipitor) 40 mg PO DIN [facility] Last Admin: 11/24/17 17:52 Dose: 40 mg Cilostazol (Pletal) 100 mg PO BID [facility] Last Admin: 11/25/17 11:10 Dose: 100 mg Clopidogrel Bisulfate (Plavix) 75 mg PO DAILY [facility] Last Admin: 11/24/17 13:35 Dose: 75 mg Sodium Chloride (Sodium Chloride 0.9%) 1,000 mls @ 100 mls/hr IV .Q10H [facility] Last Admin: 11/25/17 05:17 Dose: 100 mls/hr Lorazepam (Ativan) 1 mg IVP Q6H PRN; Protocol PRN Reason: Anxiety Last Admin: 11/25/17 01:02 Dose: 1 mg Metoprolol Succinate (Toprol Xl) 50 mg PO DAILY [facility] Last Admin: 11/25/17 11:09 Dose: 50 mg Nicotine (Nicoderm Cq) 1 patch TD DAILY [facility] Last Admin: 11/25/17 11:11 Dose: 1 patch Pantoprazole Sodium (Protonix Susp) 40 mg PO 0600 [facility] Last Admin: 11/25/17 05:18 Dose: 40 mg - Labs Labs: 11/25/17 06:00 11/25/17 06:00 PT 12.0 SECONDS (9.4-12.5) 11/23/17 14:40 INR 1.05 (0.93-1.08) 11/23/17 14:40 APTT 30.4 Seconds (25.1-36.5) 11/23/17 14:40 - Constitutional Appears: No Acute Distress - Head Exam Head Exam: NORMAL INSPECTION - Neurological Exam Neurological Exam: Alert, Awake Neuro motor strength exam: Left Upper Extremity: 4, Right Upper Extremity: 5, Left Lower Extremity: 4, Right Lower Extremity: 5 Additional comments: He isalert, followscommands with dysarthria.Sensation remains intact. Assessment and Plan (1) CVA (cerebral vascular accident) Assessment & Plan: Case discussed with Dr. Brownlee, continue allcurrent medical.physical, occupational, and speech therapies. Recommend maintaining BP control with systolic BP <220/110 for permissive hypertension for 24-36 hours post stroke. Pending EEG results.Follow up echocardiogram with bubble study Status: Acute
[2017-11-25] MEDS ORDERED: Gadodiamide 287 MG/ML VIAL (20ML) IV ONE (13:22)
--- NOTE | 2017-11-25 16:00 | PN ---
DATE: SUBJECTIVE: The patient is sitting up in a chair in room 267. He does not have any current complaints and there have been no acute events overnight. PHYSICAL EXAMINATION VITAL SIGNS: Temperature of 97.2, pulse rate of 76, blood pressure 137/74, respiratory rate of 20, and an O2 saturation of 97% on room air. HEENT: PERRLA. EOMI. No icterus. NECK: Supple with a full range of motion and no bruits. LUNGS: Clear to auscultation and percussion bilaterally. HEART: With a regular rate and rhythm. No murmurs, rubs or gallops. ABDOMEN: Benign. NEUROLOGIC: The patient is A, A, O x3 and in no acute distress. CURRENT DIAGNOSES 1. Cerebrovascular accident. 2. Coronary artery disease. PLAN: We will continue current treatment and I am looking into the possibility of sending the patient at Rehab. Shreyas Ordonez MD
[2017-11-26] MEDS: Sodium Chloride 0.9% 1,000 ML IV SCH (02:52)
[2017-11-26] MEDS: Pantoprazole 40 mg Susp UD PO SCH (05:39)
[2017-11-26 07:10] LABS: BASO # 0.03 K/mm3 (0.0-2.0); BASO % 0.4 % (0.0-3.0); EOS # 0.1 (0.0-0.7); EOS % 1.9 % (1.5-5.0); GRAN # 4.38 (1.4-6.5); GRAN % 63.3 % (50.0-68.0); HEMOGLOBIN 14.3 g/dL (14.0-18.0); LYMPH # 1.9 (1.2-3.4); LYMPH % 27.2 % (22.0-35.0); MEAN CELL VOLUME 90.9 fl (80.0-105.0); MEAN CORPUSCULAR HEMOGLOBIN 30.8 pg (25.0-35.0); MEAN CORPUSCULAR HGB CONC 33.9 g/dl (31.0-37.0); MEAN PLATELET VOLUME 9.7 fl (7.0-11.0); MONO # 0.5 (0.1-0.6); MONO % 7.2 % (1.0-6.0); RBC 4.64 10^6/uL (3.5-6.1); RED CELL DISTRIBUTION WIDTH 13.1 % (11.5-14.5); WHITE BLOOD COUNT 6.9 10^3/ul (4.5-11.0)
[2017-11-26 07:14] LABS: ALBUMIN 3.8 g/dL (3.0-4.8); BLOOD UREA NITROGEN 12 mg/dL (7-21); GFR AFRICAN-AMERICAN > 60; GFR NON-AFRICAN AMERICAN > 60
[2017-11-26 07:15] LABS: ALB/GLOB RATIO 1.3 (1.1-1.8); ALT/SGPT 34 U/L (7-56); AST/SGOT 23 U/L (17-59)
[2017-11-26] MEDS: Metoprolol Succinate 50 mg XL Tab PO SCH (10:24)
[2017-11-26] MEDS: Cilostazol 100 mg Tab UD PO SCH ×2 (10:36→18:23)
[2017-11-27] MEDS: Pantoprazole 40 mg Susp UD PO SCH (06:47)
[2017-11-27 07:03] LABS: ALB/GLOB RATIO 1.4 (1.1-1.8); ALT/SGPT 32 U/L (7-56); AST/SGOT 22 U/L (17-59); BLOOD UREA NITROGEN 10 mg/dL (7-21); CALCIUM 9.1 mg/dL (8.4-10.5); GFR AFRICAN-AMERICAN > 60; GFR NON-AFRICAN AMERICAN > 60
[2017-11-27 07:06] LABS: BASO # 0.02 K/mm3 (0.0-2.0); BASO % 0.3 % (0.0-3.0); EOS # 0.1 (0.0-0.7); EOS % 1.8 % (1.5-5.0); GRAN # 4.78 (1.4-6.5); HEMOGLOBIN 14.3 g/dL (14.0-18.0); LYMPH % 26.8 % (22.0-35.0); MEAN CELL VOLUME 90.8 fl (80.0-105.0); MEAN CORPUSCULAR HEMOGLOBIN 30.8 pg (25.0-35.0); MEAN CORPUSCULAR HGB CONC 33.9 g/dl (31.0-37.0); MEAN PLATELET VOLUME 9.9 fl (7.0-11.0); MONO # 0.5 (0.1-0.6); MONO % 6.1 % (1.0-6.0); RBC 4.65 10^6/uL (3.5-6.1); RED CELL DISTRIBUTION WIDTH 13.1 % (11.5-14.5); WHITE BLOOD COUNT 7.4 10^3/ul (4.5-11.0)
[2017-11-27] MEDS: Metoprolol Succinate 50 mg XL Tab PO SCH (10:52)
[2017-11-27] MEDS: Cilostazol 100 mg Tab UD PO SCH ×2 (11:05→17:54)
[2017-11-27] MEDS: Sodium Chloride 0.9% 1,000 ML IV SCH ×3 (11:05→21:28)
--- NOTE | 2017-11-27 11:50 | CP.PCM.PN ---
Subjective - Date & Time of Evaluation Date of Evaluation: 11/27/17 Time of Evaluation: 11:49 - Subjective Subjective: Mr. Garces was seen and examined at the bedside.He is alert, oriented with left facial droop.He has mild dysarthria.He denies any headache,dizziness, lightheadedness, nausea, vomiting. He is able to follow simple commands. His left side is weaker than the right. He remains on telesitter for patient safety. There was no untoward events overnight. Objective - Vital Signs/Intake and Output Vital Signs (last 24 hours): Temp Pulse Resp BP Pulse Ox 98.1 F 73 20 154/98 H 98 11/27/17 06:00 11/27/17 10:52 11/27/17 06:00 11/27/17 10:52 11/27/17 06:00 Intake and Output: 11/27/17 11/27/17 06:59 18:59 Intake Total 120 Output Total 1300 Balance -1180 - Medications Medications: Current Medications Acetaminophen (Tylenol 325mg Tab) 650 mg PO Q4 PRN PRN Reason: Fever >100.4 F Aspirin (Aspirin Chewable) 81 mg PO DAILY [facility] Last Admin: 11/27/17 11:06 Dose: 81 mg Atorvastatin Calcium (Lipitor) 40 mg PO DIN [facility] Last Admin: 11/26/17 18:23 Dose: 40 mg Cilostazol (Pletal) 100 mg PO BID [facility] Last Admin: 11/27/17 11:05 Dose: 100 mg Clopidogrel Bisulfate (Plavix) 75 mg PO DAILY [facility] Last Admin: 11/27/17 11:05 Dose: 75 mg Sodium Chloride (Sodium Chloride 0.9%) 1,000 mls @ 100 mls/hr IV .Q10H [facility] Last Admin: 11/27/17 11:07 Dose: 100 mls/hr Lorazepam (Ativan) 1 mg IVP Q6H PRN; Protocol PRN Reason: Anxiety Last Admin: 11/27/17 02:04 Dose: 1 mg Metoprolol Succinate (Toprol Xl) 50 mg PO DAILY [facility] Last Admin: 11/27/17 10:52 Dose: 50 mg Nicotine (Nicoderm Cq) 1 patch TD DAILY [facility] Last Admin: 11/27/17 11:06 Dose: 1 patch Pantoprazole Sodium (Protonix Susp) 40 mg PO 0600 [facility] Last Admin: 11/27/17 06:47 Dose: 40 mg - Labs Labs: 11/27/17 06:30 11/27/17 06:30 PT 12.0 SECONDS (9.4-12.5) 11/23/17 14:40 INR 1.05 (0.93-1.08) 11/23/17 14:40 APTT 30.4 Seconds (25.1-36.5) 11/23/17 14:40 - Constitutional Appears: No Acute Distress - Head Exam Head Exam: NORMAL INSPECTION - Neurological Exam Neurological Exam: Alert, Awake Neuro motor strength exam: Left Upper Extremity: 4, Right Upper Extremity: 5, Left Lower Extremity: 4, Right Lower Extremity: 5 Additional comments: Neurological unchanged from previous examination. Assessment and Plan (1) CVA (cerebral vascular accident) Assessment & Plan: Case discussed with Dr. Brownlee, continue all current medical, physical, occupational, and speech therapies. Pending MRA of the neck, if patient unable to tolerate MRA to give seroquesl 25 mg PO for one dose one hour prior to the procedure. Status: Acute
--- NOTE | 2017-11-28 02:05 | PN ---
DATE: LOCATION: The patient is in room 267, bed 1. SUBJECTIVE: The patient is currently sleeping. There have been no acute events overnight. PHYSICAL EXAMINATION: VITAL SIGNS: Are stable with a temperature of 97.8, pulse rate of 94, blood pressure of 137/87, respiratory rate of 18 with an O2 saturation of 99% on room air. HEENT: Negative. NECK: Supple with a full range of motion. LUNGS: Clear to auscultation and percussion bilaterally. HEART: With a regular rate and rhythm. ABDOMEN: Benign. NEUROLOGIC: There is a minimal left facial droop and he has a mild dysarthria. He has a slight weakness on the left side. LABORATORY DATA: CBC is normal. Chemistry is also normal. IMPRESSION: At this time, I should say is, 1. Cerebrovascular accident. 2. Coronary artery disease status post percutaneous coronary intervention with stent placement. 3. Hyperlipidemia. 4. Chronic obstructive pulmonary disease. PLAN: We are currently attempting to get this patient into rehab, most likely at [facility]. Shreyas Ordonez MD
[2017-11-28] MEDS: Pantoprazole 40 mg Susp UD PO SCH (06:01)
[2017-11-28 06:16] LABS: BASO # 0.03 K/mm3 (0.0-2.0); BASO % 0.4 % (0.0-3.0); EOS # 0.2 (0.0-0.7); EOS % 2.5 % (1.5-5.0); GRAN # 4.44 (1.4-6.5); GRAN % 59.5 % (50.0-68.0); HEMOGLOBIN 14.3 g/dL (14.0-18.0); LYMPH # 2.2 (1.2-3.4); MEAN CELL VOLUME 90.4 fl (80.0-105.0); MEAN CORPUSCULAR HEMOGLOBIN 30.6 pg (25.0-35.0); MEAN CORPUSCULAR HGB CONC 33.8 g/dl (31.0-37.0); MEAN PLATELET VOLUME 9.6 fl (7.0-11.0); MONO # 0.6 (0.1-0.6); MONO % 7.6 % (1.0-6.0); RBC 4.68 10^6/uL (3.5-6.1); RED CELL DISTRIBUTION WIDTH 13.2 % (11.5-14.5); WHITE BLOOD COUNT 7.5 10^3/ul (4.5-11.0)
[2017-11-28 06:34] VITALS: RESP 20
[2017-11-28 07:46] LABS: ALB/GLOB RATIO 1.3 (1.1-1.8); ALBUMIN 3.6 g/dL (3.0-4.8); ALT/SGPT 25 U/L (7-56); AST/SGOT 22 U/L (17-59); BLOOD UREA NITROGEN 9 mg/dL (7-21); CALCIUM 9.3 mg/dL (8.4-10.5); GFR AFRICAN-AMERICAN > 60; GFR NON-AFRICAN AMERICAN > 60
--- NOTE | 2017-11-28 08:48 | PN ---
SUBJECTIVE: The patient was seen and examined at the bedside on the telemetry talley. No acute events overnight. He remains afebrile and hemodynamically stable. This morning he feels well and is frustrated that he remains in the hospital while awaiting bed availability at outpatient rehab. His sole complaint is that of anxiety and he is requesting an increase in his Ativan. OBJECTIVE VITAL SIGNS: Temperature 97.4, pulse 89, blood pressure 136/82, respiratory rate 20, and oxygen saturations 97% on room air. GENERAL: No apparent distress. HEENT: PERRL, EOMI. No scleral icterus. No conjunctival pallor. NECK: Supple with full range of motion. No JVD. No bruits. LUNGS: Clear to auscultation. CARDIOVASCULAR: Regular rate and rhythm. Normal S1 and S2. ABDOMEN: Normoactive bowel sounds. Soft, nontender, and nondistended. EXTREMITIES: No edema. NEUROLOGIC: Awake, alert, and oriented x 3. Decreased sensation and motor function to the left aspect of the face with left facial droop noted. Motor 5/5 on right, 4+/5 on left. LABORATORY DATA: CBC reviewed and unremarkable. CMP reviewed and unremarkable. ASSESSMENT: The patient is a 56 year old man with a past medical history of CAD s/p PCI with stent placement, hyperlipidemia and COPD who presented for evaluation of a 3 day history of dysarthria and left-sided facial droop and was admitted to the telemetry talley for management of CVA. PLAN 1. CVA of the right internal capsule. Input from Dr. Brownlee noted and greatly appreciated. Continue Aspirin 81 mg p.o. daily, Plavix 75 mg p.o. daily, and Lipitor 40 mg p.o. daily. The patient is pending transfer to acute rehab. 2. CAD s/p PCI with stent placement. Continue Aspirin 81 mg p.o. daily, Plavix 75 mg p.o. daily, Lipitor 40 mg p.o. daily and Toprol-XL 50 mg p.o. daily. 3. Hyperlipidemia. Continue Lipitor 40 mg p.o. daily. 4. COPD. Continue supplemental oxygen and bronchodilators as needed. 5. Tobacco dependence. Continue nicotine 21 mg transdermal patch. 6. Anxiety. We will increase Ativan to Ativan 2 mg IV q. 6 hours p.r.n. 7. Prophylaxis. Continue Protonix 40 mg p.o. daily for GI prophylaxis and venodyne for DVT prophylaxis. CODE STATUS: Full code. Piter Ordonez MD [facility]
[2017-11-28] MEDS: Sodium Chloride 0.9% 1,000 ML IV SCH (08:53)
--- NOTE | 2017-11-28 09:00 | PN ---
DATE: 11/26/2017 SUBJECTIVE: Patient is in room 267, bed #1. There have been no acute events overnight and currently has no complaints. LABORATORY RESULTS: Her CBC is entirely within normal limits. Chemistry is also normal. PHYSICAL EXAMINATION: HEENT: PERRLA. EOMI. No icterus. NECK: Supple with a full range of motion. HEART: Regular rate and rhythm. No murmur, rubs, or gallop. ABDOMEN: Benign. NEUROLOGIC: There are no focal deficits. The awaiting placement of patient to [facility]. IMPRESSION: 1. Status post cerebrovascular accident. 2. Coronary artery disease. Shreyas Ordonez MD
[2017-11-28] MEDS: Metoprolol Succinate 50 mg XL Tab PO SCH (09:36)
[2017-11-28] MEDS: Cilostazol 100 mg Tab UD PO SCH (09:37)
[2017-11-28 12:23] VITALS: BP 135/86; TEMP 98.4
--- NOTE | 2017-11-28 12:26 | CP.PCM.PN ---
Subjective - Date & Time of Evaluation Date of Evaluation: 11/28/17 Time of Evaluation: 10:05 - Subjective Subjective: Neuro progress note: Pt was seen and examined at the bedside. No acute events overnight. Pt still with left facial droop and mild dysarthria. Mild left side is weaker than the right. No other complaints. 12 Point ROS performed and neg other than stated above. Objective - Vital Signs/Intake and Output Vital Signs (last 24 hours): Temp Pulse Resp BP Pulse Ox 97.4 F L 84 20 130/80 97 11/28/17 06:00 11/28/17 09:36 11/28/17 06:00 11/28/17 09:36 11/28/17 06:00 Intake and Output: 11/28/17 11/28/17 06:59 18:59 Intake Total 1200 480 Balance 1200 480 - Medications Medications: Current Medications Acetaminophen (Tylenol 325mg Tab) 650 mg PO Q4 PRN PRN Reason: Fever >100.4 F Last Admin: 11/27/17 21:56 Dose: 650 mg Aspirin (Aspirin Chewable) 81 mg PO DAILY [facility] Last Admin: 11/28/17 09:37 Dose: 81 mg Atorvastatin Calcium (Lipitor) 40 mg PO DIN [facility] Last Admin: 11/27/17 17:54 Dose: 40 mg Cilostazol (Pletal) 100 mg PO BID [facility] Last Admin: 11/28/17 09:37 Dose: 100 mg Clopidogrel Bisulfate (Plavix) 75 mg PO DAILY [facility] Last Admin: 11/28/17 09:37 Dose: 75 mg Sodium Chloride (Sodium Chloride 0.9%) 1,000 mls @ 100 mls/hr IV .Q10H [facility] Last Admin: 11/28/17 08:53 Dose: 100 mls/hr Lorazepam (Ativan) 2 mg IVP Q6H PRN; Protocol PRN Reason: Anxiety Last Admin: 11/28/17 09:36 Dose: 2 mg Metoprolol Succinate (Toprol Xl) 50 mg PO DAILY [facility] Last Admin: 11/28/17 09:36 Dose: 50 mg Nicotine (Nicoderm Cq) 1 patch TD DAILY [facility] Last Admin: 11/28/17 09:37 Dose: 1 patch Pantoprazole Sodium (Protonix Susp) 40 mg PO 0600 [facility] Last Admin: 11/28/17 06:01 Dose: 40 mg - Labs Labs: 11/28/17 06:00 11/28/17 06:30 PT 12.0 SECONDS (9.4-12.5) 11/23/17 14:40 INR 1.05 (0.93-1.08) 11/23/17 14:40 APTT 30.4 Seconds (25.1-36.5) 11/23/17 14:40 - Constitutional Appears: No Acute Distress - Neurological Exam Neurological Exam: Alert, Awake, CN II-XII Intact, Oriented x3 Neuro motor strength exam: Left Upper Extremity: 4, Right Upper Extremity: 5, Left Lower Extremity: 4, Right Lower Extremity: 5 Assessment and Plan - Assessment and Plan (Free Text) Assessment: 56M, with PMHx of epilepsy as a child, CAD w stents 2013, HTN and HLD presents to the ED with confusion, L sided weakness, slurred speech. MRI showed small acute lacunar infarct in the post limb of R internal capsule. - CTA head and neck showed mild stenosis of L ACCOUNTING SUPERVISOR ; Mural thrombus of L prox ICA with 40% stenosis - Dr Baez - consulted for any neurointervention - Cont Asa plavix and cilostazol - MRI brain shows small acute lacunar infarct in the post limb of R internal capsule. - F/u MRA neck - F/u echo with bubble study - Carotid artery US - reviewed neg for PFO and cardiac thrombus - Cont home lipitor - Maintain BP control with systolic BP <160 - PT and OT; Speech eval Case and plan was reviewed and discussed with
--- NOTE | 2017-11-28 12:45 | CP.PCM.PN ---
Subjective - Date & Time of Evaluation Date of Evaluation: 11/25/17 Time of Evaluation: 00:10 (Patient was seen earlier.) - Subjective Subjective: S: Patient complained of constipation. Has no other complaints. O:VSS. Not in distress. LUNGS:Normal breathing pattern. ABD: No distension noticed. A:Constiption. P: MOM 30 CC PO x 1. Objective - Vital Signs/Intake and Output Vital Signs (last 24 hours): Temp Pulse Resp BP Pulse Ox 98.4 F 77 20 135/86 97 11/28/17 12:00 11/28/17 12:00 11/28/17 12:00 11/28/17 12:00 11/28/17 06:00 Intake and Output: 11/28/17 11/28/17 06:59 18:59 Intake Total 1200 480 Balance 1200 480 - Medications Medications: Current Medications Acetaminophen (Tylenol 325mg Tab) 650 mg PO Q4 PRN PRN Reason: Fever >100.4 F Last Admin: 11/27/17 21:56 Dose: 650 mg Aspirin (Aspirin Chewable) [address] [facility] Last Admin: 11/28/17 09:37 Dose: 81 mg Atorvastatin Calcium (Lipitor) [address] [facility] Last Admin: 11/27/17 17:54 Dose: 40 mg Cilostazol (Pletal) [address] [facility] Last Admin: 11/28/17 09:37 Dose: 100 mg Clopidogrel Bisulfate (Plavix) [address] [facility] Last Admin: 11/28/17 09:37 Dose: 75 mg Sodium Chloride (Sodium Chloride 0.9%) 1,000 mls @ 100 mls/hr IV .Q10H [facility] Last Admin: 11/28/17 08:53 Dose: 100 mls/hr Lorazepam (Ativan) 2 mg IVP Q6H PRN; Protocol PRN Reason: Anxiety Last Admin: 11/28/17 09:36 Dose: 2 mg Metoprolol Succinate (Toprol Xl) [address] [facility] Last Admin: 11/28/17 09:36 Dose: 50 mg Nicotine (Nicoderm Cq) [address] [facility] Last Admin: 11/28/17 09:37 Dose: 1 patch Pantoprazole Sodium (Protonix Susp) [address] [facility] Last Admin: 11/28/17 06:01 Dose: 40 mg - Labs Labs: 11/28/17 06:00 11/28/17 06:30 PT 12.0 SECONDS (9.4-12.5) 11/23/17 14:40 INR 1.05 (0.93-1.08) 11/23/17 14:40 APTT 30.4 Seconds (25.1-36.5) 11/23/17 14:40
[2017-11-28 13:53] VITALS: PULSE 78; O2SAT 95
--- NOTE | 2017-11-29 11:29 | EEG ---
DATE OF SERVICE: 11/24/2017. TECHNICAL INFORMATION: Electrodes were placed according to the 10-20 International electrode system by tomography technologist. Total of 23 electrodes (21 EEG and 2 EKG) were placed. EEG activity was digitally recorded referentially to P1/P2 or A1/A2 electrodes. Continuous monitoring with EEG was performed using digital analysis for spike detection. The [employer] spike and seizure detection algorithms were used for digital EEG analysis throughout the monitoring period to screen the EEG in real-time and betty the data file with pointers to electrographic seizures and interictal discharges. EEG was screened for electrographic seizures and interictal discharges by a technologist. Physician, epileptologist reviewed detections as well as extensive random samples and whole EEG study in detail. DIGITAL EEG ANALYSIS: Was carried out including FFT (Fast Fourier Transform), R2D2 (Rhythmicity Run Detection and Display), Relative Asymmetry Spectrogram, and voltage plot by the [employer]. The qualitative EEG analysis and the voltage plot mapping were used for detection of foci of paroxysmal and abnormal electrical cortical activity. GENERAL DESCRIPTION: Background Rhythm: There is a well-formed, 8-10 Hz posterior dominant rhythm that is reactive, symmetric, and attenuates with eye opening. There was a normal amount of frontal beta noted bilaterally. There is no sleep recorded. ACTIVATION PROCEDURES: Photic stimulation: There is no driving noted. HYPERVENTILATION: There is slowing noted that is self-remitted. ABNORMAL ACTIVITY: There are no focal epileptiform discharges noted. No clinical or subclinical seizures noted. IMPRESSION: This is a normal awake and drowsy EEG. Clinical correlation is required. Marky Kirk MD
== END 2017-11-28 16:27 | DRG 66 ==
LOC: ED 14:00 → ERH 15:32 → 2RNO 18:07
PROVIDERS: ADMIT Internal Medicine; ATTEND Internal Medicine
DX: I63.9 Cerebral infarction, unspecified (principal); E78.00 Pure hypercholesterolemia, unspecified; I25.10 Atherosclerotic heart disease of native coronary artery without angina pectoris; I10 Essential (primary) hypertension; R29.702 NIHSS score 2; R29.810 Facial weakness; R47.1 Dysarthria and anarthria; J44.9 Chronic obstructive pulmonary disease, unspecified; F17.210 Nicotine dependence, cigarettes, uncomplicated; F41.9 Anxiety disorder, unspecified; K59.00 Constipation, unspecified; Z95.5 Presence of coronary angioplasty implant and graft

== ENCOUNTER 2018-08-27 03:50 | Observation (INO) | payer BC ==
[2018-08-27 03:50] VITALS: BMI 31.9
--- NOTE | 2018-08-27 04:13 | ED PDOC ---
Arrival/HPI - General Chief Complaint: Lower Extremity Problem/Injury Time Seen by Provider: 08/27/18 03:52 Historian: Patient - History of Present Illness Narrative History of Present Illness (Text): 08/27/18 04:10 57 year old male, whose past medical history includes CAD, coronary stents, CDA, hypertension, who presents to the emergency department complaining of rt upper chest discomfort, bilateral leg discomfort, and left foot pain x this morning. The patient denies any trauma, fever, chilld, chest pain, shortness of breath, abdominal pain, nausea, vomiting, diarrhea, back pain, neck pain, headache, dizziness, or any other complaints. Time/Duration: 24 hours Symptom Onset: Gradual Symptom Course: Unchanged Activities at Onset: Light Context: Home Past Medical History - Provider Review Nursing Documentation Reviewed: Yes - Infectious Disease Hx of Infectious Diseases: None - Tetanus Immunization Tetanus Immunization: Up to Date - Cardiac Hx Cardiac Disorders: Yes Hx Hypertension: Yes - Pulmonary Hx Chronic Obstructive Pulmonary Disease (COPD): Yes - Neurological Hx Neurological Disorder: Yes HX Cerebrovascular Accident: Yes (11/23/2017) Hx Seizures: Yes (@ childhood) Hx Transient Ischemic Attacks (TIA): Yes - HEENT Hx HEENT Disorder: No - Renal Hx Renal Disorder: No - Endocrine/Metabolic Hx Endocrine Disorders: No - Hematological/Oncological Hx Blood Disorders: No Hx AIDS: No - Integumentary Hx Dermatological Disorder: No - Musculoskeletal/Rheumatological Hx Musculoskeletal Disorders: Yes Hx Back Pain: Yes Hx Falls: No Other/Comment: tendonitis, pinched nerve in neck - Gastrointestinal Hx Gastrointestinal Disorders: No - Genitourinary/Gynecological Hx Genitourinary Disorders: No - Psychiatric Hx Anxiety: Yes Hx Substance Use: No - Surgical History Hx Appendectomy: Yes Hx Cardiac Catheterization: Yes Hx Coronary Stent: Yes Hx Orthopedic Surgery: Yes - Anesthesia Hx Anesthesia: Yes Hx Anesthesia Reactions: No Hx Malignant Hyperthermia: No - Suicidal Assessment Feels Threatened In Home Enviroment: No Family/Social History - Physician Review Nursing Documentation Reviewed: Yes Family/Social History: Unknown Family HX Smoking Status: Heavy Smoker > 10 Cigarettes Daily Hx Alcohol Use: No Hx Substance Use: No Hx Substance Use Treatment: No Allergies/Home Meds Allergies/Adverse Reactions: Allergies Iodinated Contrast- Oral and IV Dye Adverse Reaction (Verified 11/28/17 17:38) NAUSEA Home Medications: Home Meds Medication Instructions Recorded Confirmed RX: Aspirin [Aspir 81] 81 mg PO DAILY 10/12/13 08/27/18 RX: Acetaminophen [Tylenol 325mg 650 mg PO Q4 PRN 11/28/17 08/27/18 tab] RX: Cilostazol [Pletal] 100 mg PO BID 11/28/17 08/27/18 Review of Systems - Physician Review All systems were reviewed & negative as marked: Yes - Review of Systems Constitutional: Normal Eyes: Normal ENT: Normal Respiratory: Normal. absent: SOB, Cough Cardiovascular: Chest Pain (right upper chets discomort) Gastrointestinal: Normal. absent: Abdominal Pain, Diarrhea, Nausea, Vomiting Genitourinary Male: Normal. absent: Dysuria, Frequency Musculoskeletal: Normal, Other (bilateral leg discomfort; left foot pain). absent: Back Pain, Neck Pain Skin: Normal. absent: Rash Neurological: Normal. absent: Headache, Dizziness Endocrine: Normal Hemo/Lymphatic: Normal Psychiatric: Normal Physical Exam Vital Signs Reviewed: Yes Vital Signs Temp Pulse Resp BP Pulse Ox 08/27/18 04:03 97.4 F L 78 18 150/93 H 98 Temperature: Afebrile Blood Pressure: Hypertensive Pulse: Regular Respiratory Rate: Normal Appearance: Positive for: Well-Appearing, Non-Toxic, Comfortable Pain Distress: None Mental Status: Positive for: Alert and Oriented X 3 - Systems Exam Head: Present: Atraumatic, Normocephalic Pupils: Present: PERRL Extroacular Muscles: Present: EOMI Conjunctiva: Present: Normal Mouth: Present: Moist Mucous Membranes Neck: Present: Normal Range of Motion Respiratory/Chest: Present: Clear to Auscultation, Good Air Exchange. No: Respiratory Distress, Accessory Muscle Use Cardiovascular: Present: Regular Rate and Rhythm, Normal S1, S2. No: Murmurs Abdomen: No: Tenderness, Distention, Peritoneal Signs Back: Present: Normal Inspection Upper Extremity: Present: Normal Inspection. No: Cyanosis, Edema Lower Extremity: Present: Tenderness (questionable palpable tenderness to plantar aspect of lft foot). No: Edema Neurological: Present: GCS=15, CN II-XII Intact, Speech Normal Skin: Present: Warm, Dry, Normal Color. No: Rashes Psychiatric: Present: Alert, Oriented x 3, Normal Insight, Normal Concentration Medical Decision Making ED Course and Treatment: 08/27/18 04:14 Impression: 57 year old male presents to the emergency department complaining o right upper chest pain, bilateral leg pain, and left foot pain. Differential Diagnosis included but are not limited to: Plan: -- Labs -- CXR -- Xray left foot -- US LE -- Aspirin -- Cardiac ISO -- Reassess and disposition Progress Notes: EKG reviewed, shows NSR at [address]/T wave changes. 08/27/18 05:31 US reviewed, shows negative results. 08/27/18 05:51 CXR and foor xray reviewed, showsw negative results. 08/27/18 06:00 Case was discussed with PMD Dr.G. Ordonez who accepts to his service. - RAD Interpretation Radiology Orders: 08/27/18 03:57 CHEST PORTABLE [RAD] Stat - Scribe Statement The provider has reviewed the documentation as recorded by the Scribe Elizabeth Guardado All medical record entries made by the Scribe were at my direction and personally dictated by me. I have reviewed the chart and agree that the record accurately reflects my personal performance of the history, physical exam, medical decision making, and the department course for this patient. I have also personally directed, reviewed, and agree with the discharge instructions and disposition. Disposition/Present on Arrival - Present on Arrival Any Indicators Present on Arrival: No History of DVT/PE: No History of Uncontrolled Diabetes: No Urinary Catheter: No History of Decub. Ulcer: No History Surgical Site Infection Following: None - Disposition Have Diagnosis and Disposition been Completed?: Yes Diagnosis: Chest pain, Leg pain, bilateral Disposition: HOSPITALIZED Disposition Time: 06:35 Condition: STABLE
[2018-08-27] MEDS ORDERED: Morphine 2 mg/ml ISec IVP STA ×2 (04:25→05:49)
[2018-08-27 04:28] LABS: MEAN CELL VOLUME 89.8 fl (80.0-105.0); MEAN CORPUSCULAR HEMOGLOBIN 30.7 pg (25.0-35.0); MEAN CORPUSCULAR HGB CONC 34.2 g/dl (31.0-37.0); MEAN PLATELET VOLUME 8.9 fl (7.0-11.0); RBC 4.88 10^6/uL (3.5-6.1); RED CELL DISTRIBUTION WIDTH 13.8 % (11.5-14.5); WHITE BLOOD COUNT 8.3 10^3/uL (4.5-11.0)
[2018-08-27 04:33] LABS: PROTHROMBIN TIME 11.4 SECONDS (9.4-12.5)
[2018-08-27 04:46] LABS: ALB/GLOB RATIO 1.2 (1.1-1.8); ALBUMIN 4.1 g/dL (3.0-4.8); ALT/SGPT 28 U/L (7-56); AST/SGOT 22 U/L (17-59); BLOOD UREA NITROGEN 19 mg/dL (7-21); CALCIUM 9.2 mg/dL (8.4-10.5); GFR NON-AFRICAN AMERICAN > 60
[2018-08-27 04:57] LABS: TROPONIN I < 0.01 ng/mL
[2018-08-27] MEDS ORDERED: Morphine 4 mg/ml ISec IVP STA (05:49)
[2018-08-27 09:11] VITALS: O2SAT 99
--- NOTE | 2018-08-27 10:00 | RAD ---
Date of service: 08/27/2018 HISTORY: chest pain COMPARISON: None available. FINDINGS: LUNGS: Poor inspiration low lung crowded bronchovascular markings and mild bibasilar atelectasis.. PLEURA: No significant pleural effusion identified, no pneumothorax apparent. CARDIOVASCULAR: No aortic atherosclerotic calcification present. Normal cardiac size. No pulmonary vascular congestion. OSSEOUS STRUCTURES: No significant abnormalities. VISUALIZED UPPER ABDOMEN: Normal. OTHER FINDINGS: None. IMPRESSION: Poor inspiration low lung crowded bronchovascular markings and mild bibasilar atelectasis..
--- NOTE | 2018-08-27 10:14 | RAD ---
Date of service: 08/27/2018 PROCEDURE: Left Foot Radiographs. HISTORY: Pain to plantar area COMPARISON: None. FINDINGS: BONES: No evidence of acute displaced fracture nor dislocation. Small to medium-sized plantar posterior calcaneal enthesophyte present. JOINTS: Minor hallux valgus deformity slight DJD 1st MTP joint. Minor degenerative changes tibiotalar articulation. SOFT TISSUES: Normal. OTHER FINDINGS: None. IMPRESSION: No acute displaced fracture nor dislocation..
[2018-08-27] MEDS ORDERED: Naproxen 550 mg Tab PO SCH (11:00)
[2018-08-27] MEDS ORDERED: Potassium Chloride 20 mEq ER Tab PO ONE (12:07)
[2018-08-27] MEDS ORDERED: Metoprolol Succinate 100 mg XL Tab PO SCH (12:15)
--- NOTE | 2018-08-27 12:38 | HP ---
DATE OF EXAM: 08/27/2018 HISTORY OF PRESENT ILLNESS: The patient is a 57-year-old white male who presented to the emergency room complaining of severe left foot pain as well as right clavicular pain. PAST MEDICAL HISTORY: The patient has a past medical history of coronary artery disease. He is status post stent, hyperlipidemia, and hyperlipidemia. SOCIAL HISTORY: The patient he is a smoker. He does not use alcohol. contrast iodine. FAMILY HISTORY: Noncontributory. PHYSICAL EXAMINATION: VITAL SIGNS: Temperature of 98 degrees, pulse rate of 79 degrees, blood pressure 145/88, respiratory rate of 18 with a 98% saturation on room air. HEENT: Unremarkable. NECK: Supple with full range of motion. No adenopathies or bruits are appreciated. LUNGS: Clear to auscultation and percussion bilaterally. HEART: Shows a regular rate and rhythm with no murmur, rubs or gallops. ABDOMEN: Soft, nontender. Bowel sounds are normoactive. EXTREMITIES: Show no edema, no erythema. There is no pain on palpation. No swelling present on the feet. NEUROLOGIC: The patient is intact. EKG showed normal sinus rhythm with nonspecific ST-T changes in the lateral precordium consistent with ischemia. LABORATORY FINDINGS: CBC was normal. Coagulation is normal. Chemistry was normal with the exception of a nonfasting glucose of 122 and a troponin of less than 0.01. The patient will be admitted. Serial enzymes and EKGs will be followed. Dr. Abreu has been called in on consultation. Shreyas Ordonez MD
[2018-08-27 12:48] VITALS: BP 115/54; RESP 19; TEMP 97.5
[2018-08-27 14:42] VITALS: PULSE 76
--- NOTE | 2018-08-27 22:17 | CARD ---
APPROVED REPORT Date of service: 08/27/2018 EKG Measurement Heart [id number] <Conclusion> Normal sinus rhythm ST & T wave abnormality, consider inferolateral ischemia Abnormal ECG
--- NOTE | 2018-08-27 23:44 | CON ---
DATE: 08/27/2018 CONSULT SERVICE: Cardiology. REASON FOR DICTATION: Covering Dr. Peter Abreu. REASON FOR CONSULTATION: Right clavicle pain, pain in lower extremities, history of coronary artery disease, cardiac evaluation. HISTORY OF PRESENT ILLNESS: Briefly, this is a 57-year-old male with past medical history significant for coronary artery disease, status post stent in the past, history of hypertension, hyperlipidemia, noncompliance with medication, feeling pain in right clavicle and pain in lower extremities. Denies chest pain, denies shortness of breath, denies any palpitation. PAST MEDICAL HISTORY: Past history significant for coronary artery disease, status post stent in 2013; history of recent stroke with left-sided weakness; hypertension; hyperlipidemia; and history of epilepsy since childhood. FAMILY HISTORY: Significant for hypertension, coronary artery disease, and also history of osteosarcoma to the son. PAST SURGICAL HISTORY: Significant for inguinal hernia repair, appendectomy many years ago, and history of coronary artery disease and stent [place] [address] Abreu. SOCIAL HISTORY: A pack a day, still smokes, active smoker; history of ETOH abuse as well. Recent cardiac workup as follows: The patient had a cardiac catheterization done by Dr. Abreu, 10/22/2017, with a history of previous PTCA at that time, attempted PTCA of RCA was done from the left femoral artery. The patient's last echocardiography done on 11/24/2017 read by me and that revealed ejection fraction 35 to 40%, has global hypokinesis in the left ventricle, aortic valve was thickened, but opens well, bicuspid aortic valve, mild versus aortic sclerosis, trace mitral regurgitation, trace tricuspid regurgitation. No vegetation noted. REVIEW OF SYSTEMS: As per HPI. CURRENT MEDICATION: The patient is taking at home Microzide, , nicotine, metoprolol, magnesium, Colace, clopidogrel 75 mg, Pletal, atorvastatin, and aspirin. PHYSICAL EXAMINATION GENERAL: Height of the patient 5 feet 7 inches, weight of the patient 192 pounds, body mass index 30 kg/m2. VITAL SIGNS: Temperature afebrile, heart rate 76, blood pressure 114/79. HEENT: PERRLA. Extraocular muscles intact. NECK: Supple. No carotid bruit, thyromegaly. CHEST: Clear to auscultation. CARDIOPULMONARY: S1, S2 regular. ABDOMEN: Soft. EXTREMITIES: Clubbing, cyanosis negative. LABORATORY DATA: EKG shows normal sinus. T wave inversion in V4, V6. Blood workup, WBC 8.3, hemoglobin 15, hematocrit 43.8, platelet count 214. Chemistry shows sodium 141, potassium 3.8, chloride 104, carbon dioxide 30, anion gap of 10, BUN 19, creatinine 0.9. Troponin 0.01. ASSESSMENT: A 57-year-old male with a past medical history significant for coronary artery disease, status post stent in the past, cardiomyopathy, active tobacco abuse, active alcohol abuse, very atypical chest pain, but given the multiple risk factors including history of coronary artery disease and T wave inversion, I suggest echo and a stress test tomorrow. I discussed with the patient of that. If the patient agreed to proceed for a stress test, we will keep n.p.o. Further recommendation depending upon evaluation by Dr. Abreu in the morning. We will transfer care to Dr. Abreu tomorrow. We will also get lipid profile, TSH, hemoglobin A1c. Resume all previous medication, agreed to start some Naprosyn. Thank you Dr. Ordonez for providing us the opportunity in taking care of the patient Dez Flores. We will transfer care tomorrow to Dr. Abreu. Ryan Hayes MD
[2018-08-28] MEDS ORDERED: Pantoprazole 40 mg EC Tab PO SCH (06:00)
--- NOTE | 2018-08-28 08:35 | DS ---
ADMISSION DIAGNOSIS: Chest pain rule out acute coronary syndrome. DISCHARGE DIAGNOSIS: Atypical chest pain. SECONDARY DIAGNOSES: CAD s/p PCI with stent placement, HTN, hyperlipidemia and history of CVA with residual left-sided weakness. CONSULTATIONS: Dr. Abreu (Cardiology). PROCEDURES: None. IMAGING STUDIES: 1. Chest x-ray demonstrated mild bibasilar atelectasis. 2. X-ray of the left foot demonstrated no acute pathology. HISTORY OF PRESENT ILLNESS: The patient is a 57-year-old man with a past medical history of CAD s/p PCI with stent placement, hypertension and hyperlipidemia who presented for evaluation of a several day history of right-sided chest pain. The patient states that he was in his usual state of health until approximately 3 days prior to presentation to the ED when he developed the aforementioned chest pain. He denied dyspnea, palpitations or near syncope associated with the symptoms and furthermore stated that the pain was unlike his prior episodes of chest pain when he underwent placement of cardiac stents. Examination in the ED was unremarkable but given his underlying cardiac history he was admitted to the telemetry talley to cycle cardiac enzymes to rule out an acute coronary syndrome. HOSPITAL COURSE: Upon admission to the telemetry talley he was restarted on his home medications and was evaluated by Dr. Hayes (covering for Dr. Abreu) and was advised that the etiology of his chest pain was unlikely to be cardiac in nature but given his cardiac symptoms an echocardiogram and a stress test would be appropriate. The patient was initially agreeable to these recommendations however several hours later he decided to sign out against medical advice. CONDITION: Fair. DISPOSITION: The patient signed out against medical advice. Piter Ordonez MD [facility]
--- NOTE | 2018-08-28 09:26 | US ---
HISTORY: Leg pain and swelling. Evaluate for DVT PHYSICIAN(S): Pteer Haq MD. TECHNIQUE: Duplex sonography and color-flow Doppler with graded compression were used to evaluate the deep venous systems of both lower extremities. FINDINGS: The visualized deep venous systems of both lower extremities are sonographically normal and compressible. Normal wave forms and augmentation are seen. There is no sonographic evidence for deep venous thrombosis in the visualized segments of both lower extremities. IMPRESSION: No sonographic evidence for deep venous thrombosis in the visualized segments of both lower extremities.
== END 2018-08-27 16:51 | disposition left against medical advice (07) ==
LOC: ED 03:50 → ERH 06:36 → 2RSO 09:09
PROVIDERS: ADMIT Student in an Organized Health Care Education/Training Program; ATTEND Student in an Organized Health Care Education/Training Program
DX: R07.89 Other chest pain (principal); I69.354 Hemiplegia and hemiparesis following cerebral infarction affecting left non-dominant side; M79.672 Pain in left foot; M25.511 Pain in right shoulder; E78.5 Hyperlipidemia, unspecified; F17.200 Nicotine dependence, unspecified, uncomplicated; G40.909 Epilepsy, unspecified, not intractable, without status epilepticus; I10 Essential (primary) hypertension; J44.9 Chronic obstructive pulmonary disease, unspecified; I25.10 Atherosclerotic heart disease of native coronary artery without angina pectoris; Z95.5 Presence of coronary angioplasty implant and graft
CPT/HCPCS: 36415; 71045; 73630; 80053; 82550; 83615; 84484; 85027; 85610; 85730; 93005; 93970; 96374; 96376; 99285; G0378; J2270